=== PATIENT | male | born 1975 | race African-American/Black ===

== ENCOUNTER 2025-06-06 18:33 | Emergency (ER) | payer OTHER ==
[~2025-06-06] VITALS: Ht 188 cm; Wt 131.8 kg
[~2025-06-06 18:33] MED LIST: ATOR20TA65 PO; LISI20TA24 PO
[2025-06-06 18:35] VITALS: BP 134/85; PULSE 108; RESP 18; TEMP 98.7; O2SAT 95
[2025-06-06 19:28] LABS: PLATELET COUNT (AUTO) 177 K/uL (150-450); RED BLOOD CELL COUNT(AUTO) 5.67 MIL/uL (4.50-5.90); RED CELL DISTRIBUTION WIDTH 15.2 % (11.5-14.5); WHITE BLOOD COUNT (AUTO) 5.4 K/uL (4.5-11.0)
[2025-06-06 19:36] LABS: CALCIUM, TOTAL 8.5 mg/dL (8.8-10.5); CREATININE 1.53 mg/dL (0.60-1.30); GLOMERULAR FILTR. RATE CALC 59.0 mL/min (>60); GLUCOSE,RANDOM 121.0 mg/dL (70-110); SODIUM SERUM 142.0 mmol/L (136-145); UREA NITROGEN, BLOOD 14.0 mg/dL (7-18)
== END 2025-06-06 21:31 | disposition home or self-care (01) ==
LOC: EMS 18:33
DX: J02.9 Acute pharyngitis, unspecified (principal); I10 Essential (primary) hypertension; F17.210 Nicotine dependence, cigarettes, uncomplicated; Z98.890 Other specified postprocedural states; Z90.49 Acquired absence of other specified parts of digestive tract; Z79.899 Other long term (current) drug therapy
CPT/HCPCS: 70360; 70490; 71046; 71250; 80048; 85025; 99284; 36415-L1; 36415-TC